=== PATIENT | female | born 1995 | race Caucasian/White ===

== ENCOUNTER 2022-07-03 08:18 | Emergency (ER) | payer OTHER, SELFPAY ==
--- NOTE | ~2022-07-03 | CT_ITS ---
EXAMINATION: CT abdomen pelvis wo con DATE: 07/03/2022 09:34 INDICATION: Right flank pain. TECHNIQUE: Computed tomography (CT) of the abdomen and pelvis was performed without intravenous contr ast. Automated exposure control and iterative reconstruction technique were employed. The dose-length product was 242.86 mGy-cm. COMPARISON: None. FINDINGS: The visualized portions of the lung bases are clear without pneumonia or pleural effusion. The heart size is normal. No pericardial effusion. The liver, gallbladder, spleen, pancreas, adrenal glands, and kidneys are normal. There is no urolithiasis. There are no dilated loops of bowel. The ap pendix is normal. There are no pathologically enlarged lymph nodes. There is no free intraperitoneal fluid. The bones are unremarkable. IMPRESSION: 1. No etiology for the patient's symptoms. Reviewed, dictated and finalized at location A.
[2022-07-03 08:22] VITALS: BP 118/68; PULSE 86; RESP 18; TEMP 36.7; O2SAT 99
[2022-07-03 09:05] LABS: Appearance Urine Cloudy (Clear); Bacteria Urine 1+ /hpf; Bilirubin Urine 1+ (Negative); Blood Urine Negative (Negative); Color Urine Dark Yellow (Yellow); Glucose Urine UA Negative (Negative); Ketones Urine Negative (Negative); Leukocyte Esterase Ur 2+ LEU/UL (Negative); Need Manual Microscopic Reviewed; Nitrate Urine Positive (Negative); Non Pathogenic Casts 0-2; Protein Urine 1+ mg/dL (Negative); RBC Urine 21-50 /hpf (0-2); Specific Grav Ur 1.017 (1.001-1.035); Squamous Epithelial Cell Urine None seen /hpf (Few); WBC Urine 21-50 /hpf; pH Urine 7.5 (5.0-9.0)
[2022-07-03 09:06] LABS: Add Urine Microscopic? YES
--- NOTE | 2022-07-03 09:25 | ED.FEMALEGU ---
HPI - Female Genitourinary General Chief complaint: Urogenital-Female Stated complaint: right flank pain Time Seen by Provider: 07/03/22 08:56 History of Present Illness HPI Narrative: Patient is a 26-year-old female here for evaluation of right flank pain x6 hours. Patient states the pain woke her up from her sleep, starts in her right flank and does occasionally radiate into the front of her abdomen. She states that this was preceded by 3 days of dysuria, urgency and frequency. She has been taking Azo with relief of her urinary symptoms. She has not taken any pain medicine for the flank pain. Denies history of kidney stones. Reports nausea but no vomiting, fevers, chills. Related Data Allergies Allergy/AdvReac Type Severity Reaction Status Date / Time No Known Allergies Allergy Verified 07/03/22 09:57 Review of Systems Review of Systems: Gen: Denies fevers or chills Eyes: Denies eye pain or visual change ENT: Denies congestion Respiratory: Denies shortness of breath or cough CV: Denies chest pain or palpitations GI: Denies abdominal pain nausea, emesis or diarrhea : Reports dysuria, urgency and frequency Musculoskeletal: Reports flank pain Neuro: Denies numbness, tingling, weakness or focal weakness Skin: Denies rash Except as documented, all other systems reviewed and negative Exam Narrative: APPEARANCE: Uncomfortable appearing Head: Normocephalic and atraumatic. EYES: PERRLA/EOMI, conjunctivae clear NOSE: No nasal drainage EARS: External ear normal in appearance THROAT: Oropharynx is clear. Mucous membranes are moist. NECK: Supple. No adenopathy, no masses. RESPIRATORY: Airway patent, respirations nonlabored. Clear to auscultation bilaterally, no rales, rhonchi, wheezing. CARDIOVASCULAR: Regular rate and rhythm without murmurs, rubs, or gallops. ABDOMINAL: Normoactive bowel sounds. Soft, nontender, nondistended. No rebound tenderness or guarding. MUSCULOSKELETAL: Right CVA tenderness. Extremities are warm and well-perfused. Moves all extremities well. No edema. NEURO: Normal speech. No focal neurologic deficits. SKIN: Skin is warm and dry. No rashes. PSYCHIATRIC: Normal affect/mood.. Course Vital Signs Vital signs: Vital Signs Temperature 98.1 F 07/03/22 08:22 Pulse Rate 86 07/03/22 08:22 Respiratory Rate 18 07/03/22 08:22 Blood Pressure 118/68 07/03/22 08:22 Pulse Oximetry 99 07/03/22 08:22 Oxygen Delivery Room Air 07/03/22 08:22 Temperature 98.3 F 07/03/22 11:18 Pulse Rate 71 07/03/22 11:18 Respiratory Rate 16 07/03/22 11:18 Blood Pressure 104/73 07/03/22 11:18 Pulse Oximetry 97 07/03/22 11:18 Oxygen Delivery Room Air 07/03/22 08:22 MDM - Female Genitourinary MDM Narrative Medical decision making narrative: 26-year-old female here for evaluation of right flank pain and urinary symptoms over the past several days. She is nontoxic in appearance and has normal vital signs, afebrile. UA appears infected. Basic labs are unremarkable aside from leukocytosis of 13.7 likely due to UTI. CT no evidence of appendicitis or kidney stones. Patient was given dose of ceftriaxone here and will be sent home with Keflex to treat for UTI. Feeling improved after pain meds. We discussed return precautions and she voiced understanding. Lab Data 07/03/22 09:19 07/03/22 09:57 Labs: Lab Results 07/03/22 07/03/22 07/03/22 Range/Units 08:29 09:19 09:57 WBC 13.7 H (4.5-10.0) K/mm3 RBC 4.02 L (4.2-5.4) M/mm3 Hgb 13.2 (12.0-15.0) g/dL Hct 39.3 (37.0-47.0) % MCV 97.8 (80-100) fl MCH 32.8 (26-34) pg MCHC 33.6 (32-36) g/dl RDW 11.8 (11.5-14.5) % Plt Count 284 (150-375) k/mm3 MPV 10.5 H (7.4-10.4) fl Immature Gran % (Auto) 0.2 (0-0.5) % Neut % (Auto) 73.9 H (45.5-73.1) % Lymph % (Auto) 18.9 (18.3-44.2) % [place] % (Auto) 5.8 (2.6-8.5) % Eos % (Auto) 0.8 (0
[2022-07-03 09:28] LABS: Basophils Absolute Auto 0.1 K/mm3 (0.0-0.1); Basophils Percent Auto 0.4 % (0.2-1.2); Eosinophils Absolute Auto 0.1 K/mm3 (0-0.3); Eosinophils Percent Auto 0.8 % (0-4.4); Hematocrit 39.3 % (37.0-47.0); Hemoglobin 13.2 g/dL (12.0-15.0); Immature Granulocyte Absolute 0.03 K/mm3 (0.00-0.031); Immature Granulocyte Percent A 0.2 % (0-0.5); Immature Platelet Fraction Pct 4.5 % (0.9-11.2); Lymphocytes Absolute Auto 2.59 K/mm3 (0.9-3.2); Lymphocytes Percent Auto 18.9 % (18.3-44.2); Mean Corpuscular HGB Conc 33.6 g/dl (32-36); Mean Corpuscular Hemoglobin 32.8 pg (26-34); Mean Corpuscular Volume 97.8 fl (80-100); Mean Platelet Volume 10.5 fl (7.4-10.4); Monocytes Absolute Auto 0.8 K/mm3 (0.1-0.6); Monocytes Percent Auto 5.8 % (2.6-8.5); Neutrophils Absolute Auto 10.1 K/mm3 (1.3-6.7); Neutrophils Percent Auto 73.9 % (45.5-73.1); Platelet Count Result 284 k/mm3 (150-375); Red Blood Count 4.02 M/mm3 (4.2-5.4); Red Cell Distribution Width 11.8 % (11.5-14.5); White Blood Count 13.7 K/mm3 (4.5-10.0)
[2022-07-03] MEDS: MORPHINE SULFATE (*CRX) 4 MG/ML INJ IV PUSH (10:01)
[2022-07-03] MEDS: ONDANSETRON INJ 4 MG/2 ML VIAL IV PUSH (10:02)
[2022-07-03 10:14] LABS: Alanine Aminotransferase 19 U/L (6-35); Albumin Level 4.9 g/dL (3.5-5.1); Alkaline Phosphatase 62 U/L (38-126); Anion Gap 7 mmol/L (8-16); Aspartate Amino Transferase 22 U/L (14-36); Bilirubin,Total 0.5 mg/dL (0.2-1.3); Blood Urea Nitrogen 12 mg/dL (7-17); Carbon Dioxide 29 mmol/L (22-30); Chloride 103 mmol/L (98-107); Estimated CRCL calculation 90 ml/min; Estimated Glomerular Filt Rate > 60; Glucose 101 mg/dL (65-110); Potassium 3.9 mmol/L (3.4-5.0); Sodium 139 mmol/L (137-145)
[2022-07-03 11:18] VITALS: BP 104/73; PULSE 71; RESP 16; TEMP 36.8; O2SAT 97
== END 2022-07-03 11:25 | disposition home or self-care (01) ==
PROVIDERS: Emergency Medicine; Emergency Provider Physician Assistant
DX: N39.0 Urinary tract infection, site not specified (principal)
CPT/HCPCS: 36415; 74176; 80053; 81001; 81025; 85025; 85055; 87077; 87086; 87088; 96365; 96375; 99284; J0696; J2270; J2405